=== PATIENT | male | born 1995 | race Caucasian/White ===

== ENCOUNTER 2018-12-12 12:28 | Emergency (ER) | payer SELFPAY ==
[~2018-12-12] VITALS: Ht 170.2 cm; Wt 79.2 kg
[2018-12-12 12:42] VITALS: BP 143/99; PULSE 80; RESP 18; Ht 170.2 cm; Wt 79.2 kg
== END 2018-12-12 14:50 | disposition home or self-care (01) ==
LOC: FTE 12:28
DX: N50.811 Right testicular pain (principal)
CPT/HCPCS: 76870; 81003